=== PATIENT | female | born 1970 | race African-American/Black ===

== ENCOUNTER 2024-06-18 11:39 | Emergency (ER) | payer OTHER ==
--- NOTE | 2024-06-18 12:38 | ED ---
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 ROS Other: All systems not noted in ROS Statement are negative. Past Medical History Past Medical History: Diabetes Mellitus, Hypertension Additional Past Medical History / Comment(s): pulmonary carcardosis History of Any Multi-Drug Resistant Organisms: None Reported Past Surgical History: No Surgical Hx Reported Past Psychological History: PTSD Smoking Status: Former smoker Past Alcohol Use History: Abuse, Daily Past Drug Use History: Marijuana General Exam Limitations: no limitations General appearance: alert, in no apparent distress Head exam: Present: atraumatic, normocephalic, normal inspection Eye exam: Present: normal appearance, PERRL, EOMI. Absent: scleral icterus, conjunctival injection, periorbital swelling Pupils: Present: normal accommodation ENT exam: Present: normal exam, normal oropharynx, mucous membranes moist Neck exam: Present: normal inspection. Absent: tenderness, meningismus, lymphadenopathy Respiratory exam: Present: chest wall tenderness (Bilateral anterior chest wall tenderness. Negative crepitus, deformity, tenting. Negative pain with bilateral thoracic compression), decreased breath sounds, prolonged expiratory, other (Patient has persistent dry cough during HPI interview). Absent: respiratory distress, wheezes, rales, rhonchi, stridor Cardiovascular Exam: Present: regular rate, normal rhythm, normal heart sounds. Absent: systolic murmur, diastolic murmur, rubs, gallop, clicks GI/Abdominal exam: Present: soft, normal bowel sounds. Absent: distended, tenderness, guarding, rebound, rigid Extremities exam: Present: normal inspection, full ROM, normal capillary refill. Absent: tenderness, pedal edema, joint swelling, calf tenderness Back exam: Present: normal inspection Neurological exam: Present: alert, oriented X3, CN II-XII intact Psychiatric exam: Present: normal affect, normal mood Skin exam: Present: warm, dry, intact, normal color. Absent: rash Course Vital Signs 06/18/24 06/18/24 06/18/24 11:57 13:03 13:33 Temperature 97.8 F Pulse Rate 80 85 Respiratory 18 18 20 Rate Blood Pressure 117/71 115/74 O2 Sat by Pulse 100 100 Oximetry 06/18/24 06/18/24 14:00 14:06 Temperature Pulse Rate 88 88 Respiratory 18 18 Rate Blood Pressure O2 Sat by Pulse Oximetry Medical Decision Making - Medical Decision Making Was pt. sent in by a medical professional or institution (, PA, DATABASE MANAGEMENT SYSTEM SPECIALIST, urgent care, hospital, or longterm...) When possible be specific @ -[facility] Did you speak to anyone other than the patient for history (EMS, parent, family, police, friend...)? What history was obtained from this source @ -[No] Did you review nursing and triage notes (agree or disagree)? Why? @ -[I reviewed and agree with nursing and triage notes] Were old charts reviewed (outside hosp., previous admission, EMS record, old EKG, old radiological studies, urgent care reports/EKG's, longterm records)? Report findings @ -[No old charts were reviewed] Differential Diagnosis (chest pain, altered mental status, abdominal pain women, abdominal pain men, vaginal bleeding, weakness, fever, dyspnea, syncope, headache, dizziness, GI bleed, back pain, seizure, CVA, palpatations, mental health, musculoskeletal)? @ -Differential Chest Pain: Stable Angina, Unstable Angina, STEMI, NSTEMI Aortic Dissection, Pneumothorax, Musculoskeletal, elbow contusion, elbow fracture, radial ulna fracture, radial ulnar contusion, esophageal Spasm GERD, Cholecystitis, Pancreatitis, Zoster, this is not meant to be an all-inclusive list. EKG interpreted by me (3pts min.). @ -Not done X-rays interpreted by me (1pt min.). @ -[None done] CT interpreted by me (1pt min.). @ -[None done] U/S interpreted by me (1pt. min.). @ -[None done] What testing was considered but not performed or refused? (CT, X-rays, U/S, labs)? Why? @ -[None] What meds were considered but not given or refused? Why? @ -[None] Did you discuss the management of the patient with other professionals (professionals i.e. , PA, DATABASE MANAGEMENT SYSTEM SPECIALIST, lab, RT, psych nurse, social media marketing specialist, economic geographer, teacher, motorized squad commanding officer, leather case finisher)? Give summary @ -[No] Was smoking cessation discussed for >3mins.? @ -[No] Was critical care preformed (if so, how long)? @ -[No] Were there social determinants of health that impacted care today? How? (Homelessness, low income, unemployed, alcoholism, drug addiction, transportation, low edu. Level, literacy, decrease access to med. care, longterm, rehab)? @ -[No] Was there de-escalation of care discussed even if they declined (Discuss DNR or withdrawal of care, Hospice)? DNR status @ -[No] What co-morbidities impacted this encounter? (DM, HTN, Smoking, COPD, CAD, Cancer, CVA, ARF, Chemo, Hep., AIDS, mental health diagnosis, sleep apnea, morbid obesity)? @ -[None] Was patient admitted / discharged? Hospital course, mention meds given and route, prescriptions, significant lab abnormalities, going to OR and other pertinent info. @ -[hospital course] Undiagnosed new problem with uncertain prognosis? @ -[No] Drug Therapy requiring intensive monitoring for toxicity (Heparin, Nitro, Insulin, Cardizem)? @ -[No] Were any procedures done? @ -[No] Diagnosis/symptom? @ -[default] Acute, or Chronic, or Acute on Chronic? @ -Acute Uncomplicated (without systemic symptoms) or Complicated (systemic symptoms)? @ -Uncomplicated Side effects of treatment? @ -[No] Exacerbation, Progression, or Severe Exacerbation? @ -[No] Poses a threat to life or bodily function? How? (Chest pain, [place], [place], pneumonia, PE, COPD, DKA, ARF, appy, cholecystitis, CVA, Diverticulitis, Homicidal, Suicidal, threat to staff... and all critical care pts) @ -[No] - Lab Data Lab Results 06/18/24 Range/Units 12:42 Influenza Type A (PCR) Not Detected (Not Detectd) Influenza Type B (PCR) Not Detected (Not Detectd) RSV (PCR) Not Detected (Not Detectd) SARS-CoV-2 (PCR) Not Detected (Not Detectd) Disposition Clinical Impression: Fall, Elbow contusion, Chest wall contusion Disposition: HOME SELF-CARE Condition: Good Instructions (If sedation given, give patient instructions): Fall Prevention (ED) Is patient prescribed a controlled substance at d/c from ED?: No Referrals: Nonstaff,Physician [Primary Care Provider] - 1-2 days Time of Disposition: 14:31
[2024-06-18] MEDS: methylPREDNISolone SOD SUCCI 125 MG/2 ML VIAL IM ONE (12:40)
--- NOTE | 2024-06-18 13:19 | XR ---
EXAMINATION TYPE: XR elbow limited bilateral DATE OF EXAM: 06/18/2024 1:09 PM COMPARISON: None. CLINICAL INDICATION: Female, 54 years old with history of Fall out of bunk bed, pain TECHNIQUE: Frontal, lateral and oblique images of the bilateral elbows are obtained. FINDINGS: There is no acute fracture/dislocation evident in either elbow. No abnormal fat pad signs are seen bilaterally. The overlying soft tissue appears unremarkable bilaterally. IMPRESSION: There is no acute fracture or dislocation in either elbow. [facility], , 06/18/2024 1:17 PM
--- NOTE | 2024-06-18 13:21 | XR ---
EXAMINATION TYPE: XR ribs bilat w pa chest xray DATE OF EXAM: 06/18/2024 COMPARISON: NONE CLINICAL INDICATION: Female, 54 years old with history of Fall out of bunk bed; chest and bilateral r ib pain. TECHNIQUE: Single PA view of the chest along with AP and oblique images of the bilateral ribs. FINDINGS: There is right suprahilar linear scarring and/or atelectasis. No pleural effusion or pneumo thorax seen bilaterally. Cardiac silhouette size is within normal limits. There are calcified mediast inal lymph nodes thought present. Dedicated images of the bilateral ribs show no acute displaced fracture. Overlying soft tissue is unr emarkable IMPRESSION: 1. No acute displaced rib fracture bilaterally. 2. Evidence of old granulomatous disease. Right suprahilar linear scarring. No suspicious acute pulmo nary process. [facility], , 06/18/2024 1:19 PM
[2024-06-18 13:43] LABS: Influenza A Not Detected (Not Detectd); Influenza B Not Detected (Not Detectd); RSV Not Detected (Not Detectd)
[2024-06-18] MEDS: IPRATROPIUM-ALBUTEROL 3 ML NEB INHALATION STA (14:00)
[2024-06-18 14:02] VITALS: PULSE 88; RESP 18
[2024-06-18 14:56] VITALS: BP 118/76; TEMP 98
== END 2024-06-18 14:57 | disposition home or self-care (01) ==
LOC: EC 11:39
DX: S50.01XA Contusion of right elbow, initial encounter (principal); S50.02XA Contusion of left elbow, initial encounter; S20.219A Contusion of unspecified front wall of thorax, initial encounter; Z87.891 Personal history of nicotine dependence; Z88.0 Allergy status to penicillin; Z91.030 Bee allergy status; W19.XXXA Unspecified fall, initial encounter
CPT/HCPCS: 94640; 87636; 71111; 73070; 99283; 96372; J2919